=== PATIENT | male | born 1990 | race Caucasian/White ===

== ENCOUNTER 2017-06-03 15:24 | Outpatient (CLI) ==
--- NOTE | 2017-06-03 16:28 | DI ---
EXAM: Lumbar spine radiographs. HISTORY: Low back pain. COMPARISON: None available. TECHNIQUE: Three views of the lumbar spine. FINDINGS: Mild left convex curvature centered in the mid lumbar spine noted. Otherwise, the normal curvature and alignment are maintained. Vertebral body and intervertebral disc heights are normal save for mild loss of disc height at L5-S1. No fracture or subluxation identified. Sacral arcuate lines are intact. Soft tissues are unremarkable. IMPRESSION: 1. Mild loss of disc height at L5-S1. 2. Mild left convex midlumbar curvature.
== END 2017-06-03 15:25 | disposition home or self-care (01) ==
LOC: RAD 15:24
PROVIDERS: ATTEND Physician Assistant
DX: M54.5 Low back pain (principal)

== ENCOUNTER 2017-10-05 19:44 | Emergency (ER) ==
[2017-10-05 19:50] VITALS: BP 160/102; TEMP 98.3; BMI 41.3
--- NOTE | 2017-10-05 20:44 | ED.PDOC ---
General ED Provider: Dr. ARINA LOVE-ER Chief Complaint: Eye Problem Stated Complaint: my eye is draining yellow stuff and its red--my boss had pink eye a few days ago Time Seen by Physician: 20:42 Mode of Arrival: Walk-In Information Source: Patient Exam Limitations: No limitations Primary Care Provider: CLARA BEST Nursing and Triage Documentation Reviewed and Agree: No Reviewed sepsis parameters & appropriate labs ordered?: No System Inflammatory Response Syndrome: Not Applicable Sepsis Protocol: For patient's 13 years and over: Temp is 96.8 and below OR 101 and greater Pulse >90 BPM Resp >20/minute Acutely Altered Mental Status Are patient's symptoms suggestive of a new infection, such as: -Pneumonia -Skin, Soft Tissue -Endocarditis -UTI -Bone, Joint Infection -Implantable Device -Acute Abdominal Infection -Wound Infection -Meningitis -Blood Stream Catheter Infection -Unknown EENT Complaint Exam - Eye Complaint/Exam Onset/Duration: 2 days Symptoms Are: Still present Timing: Constant Initial Severity: Mild Current Severity: Mild Location: Discreet, Left Alleviating: Reports: None Associated Signs and Symptoms: Reports: Purulent drainage. Denies: Fever, Swelling Eye Surgical History: Reports: None Penetrating Injury Risk Factors: None Globe Rupture Risk Factors: None Acute Glaucoma Risk Factors: None Optic Artery Occlusion Risk Factors: None Visual Field: Normal Extraocular Movement: Normal Orbit Findings: Normal Globe Findings: Intact Lid Findings: Normal Conjunctival Findings: Red, Exudate Corneal Findings: Clear Fundi: Normal Slit Lamp Used: No Differential Diagnoses: Conjunctivitis Review of Systems - Review Of Systems Constitutional: Reports: No symptoms Eyes: Reports: Drainage, Inflammation, Pain, Glasses Ears, Nose, Mouth, Throat: Reports: No symptoms Respiratory: Reports: No symptoms Cardiac: Reports: No symptoms GI: Reports: No symptoms : Reports: No symptoms Musculoskeletal: Reports: No symptoms Skin: Reports: No symptoms Neurological: Reports: No symptoms Endocrine: Reports: No symptoms Hematologic/Lymphatic: Reports: No symptoms All Other Systems: Reviewed and Negative Past Medical History - Past Medical History Previously Healthy: No Endocrine: Reports: Unknown Cardiovascular: Reports: Unknown Respiratory: Reports: Unknown Hematological: Reports: Unknown Gastrointestinal: Reports: Unknown Genitourinary: Reports: Unknown Neuro/Psych: Reports: Unknown Musculoskeletal: Reports: Unknown Cancer: Reports: Unknown - Surgical History General Surgical History: Reports: Unknown - Family History Family History: Reports: Unknown - Social History Smoking Status: Current every day smoker Hx Substance Use: No Alcohol Screening: Occasionally - Immunizations Tetanus Shot up to Date: (unsure) Physical Exam - Physical Exam Appearance: Well-appearing, No pain distress, Well-nourished Eyes: THADDEUS, EOMI, Conjunctiva inflammed ENT: Ears normal Neck: Supple Respiratory: Airway patent, Breath sounds clear, Breath sounds equal, Respirations nonlabored Cardiovascular: RRR GI/: Soft Musculoskeletal: Normal strength Skin: Warm, Dry, Normal color Neurological: Sensation intact, Motor intact, Reflexes intact, Cranial nerves intact, Alert, Oriented Psychiatric: Affect appropriate, Mood appropriate Critical Care Note - Critical Care Note Total Time (mins): 0 Course - Course Vital Signs: Temp Pulse Resp BP Pulse Ox 10/05/17 19:46 98.3 F 101 H 16 160/102 H 96 Departure - Departure Time of Disposition: 20:44 Disposition: HOME SELF-CARE Discharge Problem: Conjunctivitis Qualifiers: Conjunctivitis type: other Laterality: left Qualified Code(s): H10.89 - Other conjunctivitis Instructions: Conjunctivitis (ED) Condition: Good Pt referred to PMD for follow-up: Yes Additional Instructions: ciloxan eye drops 1 drop into the eye tid x 7days=--warm compresses tid --see eye professional in 48hrs if not improved Allergies/Adverse Reactions: Allergies Sulfa (Sulfonamide Antibiotics) Allergy (Mild, Unverified 06/07/14 10:49) Rash Home Medications: Ambulatory Orders 1 [No Reported Medications] 10/05/17 Disposition Discussed With: Patient, Family
== END 2017-10-05 20:53 | disposition home or self-care (01) ==
LOC: ED 19:44
DX: H10.89 Other conjunctivitis (principal); F17.210 Nicotine dependence, cigarettes, uncomplicated
CPT/HCPCS: 99282